=== PATIENT | male | born 1960 | race Caucasian/White ===

== ENCOUNTER 2021-06-24 03:59 | Emergency (ER) | payer MEDICARE ==
[~2021-06-24 03:59] MED LIST: 8 HOUR650 MG PO; ASPIRIN325 M1 PO; ATARAX25 MG PO; BACLOFEN 10MG T10 MG PO; BLOOD PRESSURE1 EAC2 PO; DULERA 200 MCG8.8 GM PO; FLOMAX0.4 MG PO; FLORINEF0.1 MG PO; IBUPROFEN400 MG PO; LACTINEX1 EACH PO; LANTUS **100 UNITS/ SC; LEVAQUIN500 MG PO; LEVAQUIN750 MG PO; NORCO 5-325 TA1 EACH PO; NOVOLIN 70/30 SQ; NOVOLOG MI100 UNIT/1 SC; NOVOLOG VI100 UNIT/1 SQ; PAXIL10 MG PO; PAXIL20 MG PO; PERCOCET 10-321 EACH PO; PROSCAR5 MG PO; PROVENTIL HFA6.7 GM PO; SEROQUEL 25MG T25 MG PO; SIMVASTATIN20 MG PO; SINGULAIR10 MG PO; SPIRIVA 18MCG18 MCG PO; SPIRIVA18 MCG INH; SYMBICORT 1601 PUFFS INH; TRAZODONE 100M100 MG PO; TYLENOL #31 EACH PO; VANCOMYCIN1000 MG IV; VENTOLIN HFA IN18 GM INH; VOLTAREN **OUT75 MG PO; WELLBUTRIN100 MG PO; ZYRTEC10 MG PO
[2021-06-24 04:52] LABS: BASOPHIL 0.9 % (0-2); EOSINOPHIL 1.6 % (0-5); HCT 32.9 % (42.0-52.0); HGB 10.5 g/dl (13.2-18.0); LYMPHOCYTE 19.4 % (15-48); MCHC 31.9 g/dL (32.0-36.0); MCV 90.9 fL (78.0-100.0); MONOCYTE 4.8 % (0-12); MPV 9.9 fL (6.0-9.5); NRBC 0; PLT 246 K/uL (150-400); RBC 3.62 M/uL (4.70-6.00); RDW 17.4 % (11.5-14.0); WBC 6.7 K/uL (4.0-10.5)
[2021-06-24 05:15] LABS: ALBUMIN 3.3 g/dL (3.4-5.0); BILIRUBIN - TOTAL 0.5 mg/dL (0.2-1.0); BUN/CREAT RATIO (CALC) 22.4 RATIO; CREATININE 1.07 mg/dL (0.67-1.17); GLOBULIN (CALCULATION) 5.3 g/dL; POTASSIUM 5.7 mmol/L (3.5-5.1); TOTAL PROTEIN 8.6 g/dL (6.4-8.2)
[2021-06-24 06:24] LABS: INR 1.01 (0.9-1.2); PROTHROMBIN TIME 12.7 SECONDS (11.8-13.4)
[2021-06-24 07:24] LABS: BILIRUBIN NEGATIVE (NEGATIVE); BLOOD NEGATIVE Ery/uL (NEGATIVE); CLARITY CLEAR (CLEAR); COLOR YELLOW (YELLOW); GLUCOSE (U) 3+ mg/dL (NORMAL); LEUKOCYTES NEGATIVE Leu/uL (NEGATIVE); NITRITE NEGATIVE (NEGATIVE); PROTEIN NEGATIVE (NEGATIVE); SPECIFIC GRAVITY 1.015 (1.001-1.030); UROBILINOGEN 0.2 mg/dL (0.2-1.0)
== END 2021-06-24 07:59 | disposition left against medical advice (07) ==
LOC: FER 03:59
PROVIDERS: Emergency Medicine
DX: S51.811A Laceration without foreign body of right forearm, initial encounter (principal); S09.90XA Unspecified injury of head, initial encounter; I25.10 Atherosclerotic heart disease of native coronary artery without angina pectoris; I69.398 Other sequelae of cerebral infarction; Z23 Encounter for immunization; Z79.02 Long term (current) use of antithrombotics/antiplatelets; Z79.82 Long term (current) use of aspirin; Z53.29 Procedure and treatment not carried out because of patient's decision for other reasons; W01.0XXA Fall on same level from slipping, tripping and stumbling without subsequent striking against object, initial encounter; Y92.009 Unspecified place in unspecified non-institutional (private) residence as the place of occurrence of the external cause
CPT/HCPCS: 36415; 70450; 80053; 81003; 84484; 85025; 85610; 90471; 90715; J7030